=== PATIENT | male | born 2000 | race African-American/Black ===

== ENCOUNTER 2021-06-01 10:42 | Emergency (ER) | payer SELFPAY ==
[2021-06-01] MEDS ORDERED: Lidocaine 1% (PF) 30 ML VIAL ONE (13:22)
[2021-06-01] MEDS ORDERED: cefTRIAXone\\ROCEPHIN 500 MG VIAL ONE (13:22)
== END 2021-06-01 13:36 | disposition home or self-care (01) ==
LOC: ERS 10:42
DX: N34.2 Other urethritis (principal); D57.00 Hb-SS disease with crisis, unspecified
CPT/HCPCS: 96372; 99283; J0696; J2001

== ENCOUNTER 2021-06-20 11:07 | Emergency (ER) | payer SELFPAY ==
[2021-06-20] MEDS ORDERED: cefTRIAXone\\ROCEPHIN 500 MG VIAL ONE (12:15)
== END 2021-06-20 12:49 | disposition home or self-care (01) ==
LOC: ERS 11:07
DX: N34.2 Other urethritis (principal)
CPT/HCPCS: 96372; 99283; J0696